=== PATIENT | female | born 1990 | race Caucasian/White ===

== ENCOUNTER 2018-11-20 17:52 | Emergency (ER) | payer SELFPAY ==
[~2018-11-20] VITALS: Ht 162.6 cm; Wt 73.0 kg
[2018-11-20 18:45] VITALS: BP 132/75
[2018-11-20] MEDS ORDERED: HYDROCODONE/ACETAMINOPHEN 5/325MG TABLET PO ONE (18:45)
== END 2018-11-20 22:29 | disposition home or self-care (01) ==
LOC: ER 17:52
DX: S09.8XXA Other specified injuries of head, initial encounter (principal); S13.9XXA Sprain of joints and ligaments of unspecified parts of neck, initial encounter; M54.9 Dorsalgia, unspecified; V43.52XA Car driver injured in collision with other type car in traffic accident, initial encounter; Y93.9 Activity, unspecified; Y92.410 Unspecified street and highway as the place of occurrence of the external cause
CPT/HCPCS: 72131; 81025; 99284